=== PATIENT | female | born 1990 | race Caucasian/White ===

== ENCOUNTER 2024-02-15 23:11 | Emergency (ER) | payer MEDICAID ==
[~2024-02-15] VITALS: Ht 162.6 cm; Wt 54.4 kg
[2024-02-15 23:22] VITALS: BP_SYST 116; PULSE 80; RESP 18; TEMP 97.5; O2SAT 99
[2024-02-15] MEDS: LORazepam 1 MG TABLET PO ONE (23:34)
[2024-02-16 00:21] LABS: HEMATOCRIT 39.1 % (36-48); MEAN CORPUSCULAR VOLUME 83 fL (79.0-98.0); MONOCYTES # (AUTO) 0.4 K/uL (0.0-1.0); RED BLOOD CELL COUNT(AUTO) 4.72 MIL/uL (4.2-6.2)
[2024-02-16 01:07] LABS: BASOPHILS % (AUTO) 0.4 % (0.0-2.0); EOSINOPHILS % (AUTO) 0.4 % (0.0-4.0); HEMOGLOBIN 13.1 g/dL (12.0-16.0); LYMPHOCYTES # (AUTO) 1.1 K/uL (1.0-5.5); MEAN CORPUSCULAR HEMOGLOBIN 28 pg (27-31); MEAN CORPUSCULAR HGB CONC 34 % (32-36); MONOCYTES % (AUTO) 6.4 % (1.7-9.3); NEUTROPHILS # (AUTO) 4.5 K/uL (1.8-7.7); NEUTROPHILS % (AUTO) 74.8 % (40.0-70.0); PLATELET COUNT (AUTO) 219 K/uL (130-430); RED CELL DISTRIBUTION WIDTH 15.7 % (9.0-15.0)
[2024-02-16 01:22] LABS: BILIRUBIN,URINE NEGATIVE (NEGATIVE); COLOR,URINE YELLOW (YELLOW); GLUCOSE,URINE NEGATIVE (NEGATIVE); KETONES,URINE NEGATIVE (NEGATIVE); NITRITE, URINE NEGATIVE (NEGATIVE); PROTEIN URINE 1+ (NEGATIVE); UROBILINOGEN,URINE 0.2 (0.2-1.0)
[2024-02-16 01:32] LABS: BLOOD, URINE TRACE (NEGATIVE); CLARITY/URINE HAZY (CLEAR); LEUKOCYTE ESTERASE ,URINE TRACE (NEGATIVE)
[2024-02-16 01:33] LABS: BACTERIA,URINE RARE /HPF (None Seen)
[2024-02-16 01:36] LABS: HCG,QUAL RESULT NEGATIVE (NEGATIVE)
[2024-02-16 01:47] LABS: BARBITURATE, URINE NEGATIVE (NEG <=200); BENZODIAZEPINE, URINE NEGATIVE (NEG <=150); CANNABINOID, URINE POSITIVE (NEG <=50); COCAINE, URINE NEGATIVE (NEG <=150); METHAMPHETAMINES SCREEN,URINE NEGATIVE (NEG <=500); OPIATE, URINE NEGATIVE (NEG <=100); PHENCYCLIDINE SCREEN,URINE NEGATIVE (NEG <=25); UR TRICYCLIC ANTIDEPRESSANTS NEGATIVE (NEG <=300); URINE AMPHETAMINE NEGATIVE (NEG <=500); URINE METHADONE NEGATIVE (NEG <=200); URINE OXYCODONE SCREEN NEGATIVE (NEG <=100)
[2024-02-16 01:52] LABS: ANION GAP 13 (5-15); CALCIUM 8.9 mg/dL (8.4-11.0); CARBON DIOXIDE 25 mmol/L (23-29); CHLORIDE 103 mmol/L (98-107); CREATININE 0.72 mg/dL (0.55-1.30); GFR AFRICAN AMERICAN 122 mL/min (>90); GFR NON AFRICAN-AMERICAN 100 mL/min (>90); GLUCOSE 93 mg/dL (74-106); POTASSIUM 3.4 mmol/L (3.5-5.1); SODIUM SERUM 141 mmol/L (136-145); UREA NITROGEN, BLOOD 13 mg/dL (8-21)
[2024-02-16 01:59] LABS: ACETAMINOPHEN < 1 ug/mL (1-30); ALCOHOL, BLOOD < 3 mg/dL (<10); SALICYLATE < 1 mg/dL (3-30)
[2024-02-16 10:54] VITALS: BP_SYST 100; PULSE 67; RESP 14; TEMP 97.9; O2SAT 97
== END 2024-02-16 10:52 ==
LOC: SED 23:11
DX: R45.851 Suicidal ideations (principal); F12.90 Cannabis use, unspecified, uncomplicated; Z91.49 Other personal history of psychological trauma, not elsewhere classified; Z79.899 Other long term (current) drug therapy; Z20.822 Contact with and (suspected) exposure to COVID-19
CPT/HCPCS: 99285; 87426; 80307; 80048; 84703; 85025; 87086; 36415; 81025; 81001; 81000; 81015; G0482; G0480; G0481